=== PATIENT | male | born 1955 | race African-American/Black ===

== ENCOUNTER 2023-04-09 11:25 | Emergency (ER) | payer MEDICARE, MEDICAID, SELFPAY ==
[2023-04-09 11:31] VITALS: BP 134/85; PULSE 86; RESP 18; TEMP 36.6; O2SAT 97; BMI 23.0
--- NOTE | 2023-04-09 11:36 | ED_ITS ---
HPI - General Adult General Chief complaint: Extremity Problem Stated complaint: L Foot Pain No Injury Time Seen by Provider: 04/09/23 12:15 Source: patient Mode of arrival: ambulatory Limitations: no limitations History of Present Illness HPI narrative: 67-year-old male with history of longstanding anemia presents to the emergency department requesting basic labs, patient saw a legal contracts specialist and was asked to get basic labs and a blood glucose check ?to see if I am a diabetic ?, patient does not have a primary care provider. He is trying to get a bunionectomy done due to a bunion on his left foot. He reports it has become progressively more painful over time. Also reports numbness to bilateral toes for about 2-3 weeks status post shoveling snow he reports they got wet. [employer] aware of this. No new findings or changes with his toes since he saw podiatry. Just requesting labs. Denies blunt trauma fevers, chills, nausea, vomiting, abdominal pain, headache, vision changes, chest pain and shortness of breath. Related Data Allergies Allergy/AdvReac Type Severity Reaction Status Date / Time No Known Allergies Allergy Verified 04/09/23 11:30 [No Known Allergies*] Review of Systems 2 Review of Systems: Constitutional : No Weight loss, No Fever, No Chills, No Fatigue, No Malaise ENT/Mouth : No sore throat, No Rhinorrhea Eyes: No Eye Pain, No Swelling, No Redness Cardiovascular : No Chest Pain, No SOB, No Dyspnea on Exertion, No Orthopnea, No Edema, No Palpitations Respiratory : No Cough, No Sputum, No Wheezing Gastrointestinal : No Nausea, No Vomiting, No Diarrhea, No Constipation, No abdominal Pain, No Hematochezia, No Melena Genitourinary : No Dysuria, No Urinary Frequency, No Hematuria, Musculoskeletal : No joint pain, No Myalgias, No Joint Swelling, + pain to bunion Skin : No Skin Lesions, No rash Neuro : No Weakness, No Numbness, No Dizziness, No Headache Psych : No Anxiety/Panic, No Depression All other systems reviewed and are negative Yes all other systems are reviewed and are negative [facility] Past Medical History Attestation statement: The following information was validated with the patient. Source: old records reviewed and nursing notes reviewed Social History Social History Advance Directives: No Advance Directives Information Provided: No Physical Exam ED Vital Signs: Vital Signs - 24 hr 04/09/23 11:31 Temperature 98 F Pulse Rate 86 Respiratory Rate 18 Blood Pressure 134/85 Pulse Oximetry 97 Oxygen Delivery Method Room Air BMI result Body Mass Index 23.0 vss Appearance: Alert.? Oriented X3.? No acute distress.? Head: Normocephalic, atraumatic, no step-offs or deformities Eyes: Pupils equal, round and reactive to light.? ENT: Pharynx normal.? Neck: Normal inspection.? Neck supple.? CVS: Normal heart rate and rhythm.? Pulses normal.? Respiratory: No respiratory distress.? Breath sounds normal.? Abdomen: Soft and nontender.? Skin: Skin warm and dry.? Normal skin color.? Normal skin turgor.? Extremities: No lower extremity edema.? No calf ttp. 5/5 strength to bilateral upper and lower extremities + l bunion tenderness on palpation. NO errythema or warmth overlying Neuro: Oriented X 3.? No motor deficit.? No sensory deficit. CN 2-12 intact Course Course Course Narrative: RME: 67 yold male presents to the ED left big toe bunion that is painful and wants labs drawn so he can get clearnace so the Podatirst can perform the bunion removal. The legal contracts specialist would like to know if he is diabetic. labs ordered. Foot motor, neuro, and vascular exam intact. positive for bunion tenderness on palpation. Reevaluation(s) Reevaluation #1: CBC with a microcytic anemia noted 66.9 MCV, hemoglobin 9.7, hematocrit 33.5. No reports of active bleeding at this time. I do not have previous labs to compare with. No complaints such as fatigue, no tachycardia, hypotension or tachypnea leading me to believe that patient is having acute blood loss anemia and hypovolemic shock. This is likely patient's baseline, he is supposed to take iron pills he states but isnt taking them, has hx of anemia requiring transfusions in the pasat. He has been anemic in the past. Chemistry no acute findings requiring intervention. Random glucose of 86. Explained to patient he can share these values with his primary care provider however I will not provide surgical clearance from an emergency department as I do not have a full medical history on this patient previous labs to compare with. Time: 12:19 Reevaluation #2: Patient given copy of labs and list of PCPs in the area. Time: 12:34 Medical Decision Making Medical Decision Making MDM Narrative: 59-year-old male presents requesting labs so he can be seen by a legal contracts specialist. He wants a bunionectomy Physical exam with pain to palpation of bunion of left foot. No overlying skin changes. History and physical exam consistent with bunion. Unlikely septic joint, gout, pseudogout. Patient would like to know if he has a diabetic, provider in triage ordered labs. I explained to patient I will not medically clear him for procedure we can order the labs and it is up to his primary care provider to clear him for this procedure. I do not have previous labs to compare with. Labs ordered and pending Differential Diagnosis Differential Diagnoses: The differential diagnosis associated with the presentation includes History and physical exam consistent with bunion. Unlikely septic joint, gout, pseudogout. Admission/Observation Consideration of admission/observation: Escalation of care including admission/observation considered Unlikely Lab Data MDM Lab Attestation statement: I reviewed the patient's lab results. Microcytic anemia noted 04/09/23 11:46 04/09/23 11:46 Labs: Lab Results 04/09/23 Range/Units 11:46 WBC 5.9 (4.8-10.8) X10*3/uL RBC 5.01 (4.60-5.80) X10*6/uL Hgb 9.7 L (14.0-18.0) g/dl Hct 33.5 L (42.0-52.0) % MCV 66.9 L (80.0-98.0) fL MCH 19.4 L (27.0-33.0) pg MCHC 29.0 L (31.0-36.0) g/dl RDW 20.3 H (11.0-16.0) % Plt Count 308 (160-400) X10*3/uL MPV 9.6 (9.4-12.4) fL Immature Gran % (Auto) 0.5 H (0.0-0.4) % Neut % (Auto) 74.5 H (45-73) % Lymph % (Auto) 8.3 L (20-40) % [place] % (Auto) 12.6 H (2-11) % Eos % (Auto) 2.7 (0-4) % Baso % (Auto) 1.4 (0-2) % Lymph # (Auto) 0.5 L (1.2-4.9) X10*3/uL [place] # (Auto) 0.7 (0.1-1.2) X10*3/uL Eos # (Auto) 0.2 (0.0-0.4) X10*3/uL Baso # (Auto) 0.1 (0.0-0.2) X10*3/uL Abs Immat Gran (auto) 0.03 (0.00-0.03) X10*3/uL Absolute Neuts (auto) 4.4 (2.0-8.3) x10*3/uL Absolute Nucleated RBC 0.000 (0.0-0.012) X10*3/uL Nucleated RBC % (auto) 0.0 (0.0-0.2) /100WBC Sodium 136 (135-145) mmol/L Potassium 3.9 (3.3-5.1) mmol/L Chloride 106 (96-108) mmol/L Carbon Dioxide 21 L (22-29) mmol/L Anion Gap 13 (12-20) BUN 23 H (9-16) mg/dL Creatinine 1.13 (0.5-1.4) mg/dL Estim Creat Clear Calc 64.2 Estimated GFR > 60 Random Glucose 86 (60-115) mg/dL Estimat Average Glucose 105 mg/dL Hemoglobin A1c % 5.3 (<6.0) % Calcium 8.8 (8.4-10.2) mg/dL Total Bilirubin 0.2 (0.0-1.0) mg/dL AST 16 (5-37) U/L ALT 16 (0-40) U/L Alkaline Phosphatase 76 (39-117) U/L Total Protein 7.2 (6.5-8.0) g/dL Albumin 3.9 (3.5-5.0) g/dL Critical Care Time Critical Care Time Critical Care Time: No Discharge Plan Discharge Clinical Impression: Bunion Patient Disposition: Home, Self-Care Instructions: Bunion (ED), Bunionectomy (DC) Additional Instructions: Take your medications as prescribed. If you were prescribed antibiotics today, it is important that you take your medication to their entirety, do not skip any doses, do not finish them early. Follow-up with your primary care provider this week. Return to the emergency department with new or worsening symptoms. Such as fevers, chills, chest pain, shortness of breath, nausea, vomiting, dizziness, headache, vision changes, lethargy In case of emergency call 911 Referrals: ED Physician,Generic [Physician] - 2 days Stand Alone Forms: Work/School Release Interventions: ED Discharge Assessment Last Done: 04/09/23 12:40 Discharge Date/Time: 04/09/23 12:41
[2023-04-09 11:52] LABS: MANUAL DIFF FLAG NO
[2023-04-09 12:04] LABS: Basophils Absolute Auto 0.1 X10*3/uL (0.0-0.2); Basophils Percent Auto 1.4 % (0-2); Eosinophils Absolute Auto 0.2 X10*3/uL (0.0-0.4); Eosinophils Percent Auto 2.7 % (0-4); Hematocrit 33.5 % (42.0-52.0); Hemoglobin 9.7 g/dl (14.0-18.0); Imm Gran Abs Auto 0.03 X10*3/uL (0.00-0.03); Imm Gran Pct Auto 0.5 % (0.0-0.4); Lymphocytes Absolute Auto 0.5 X10*3/uL (1.2-4.9); Lymphocytes Percent Auto 8.3 % (20-40); Mean Corpuscular Hemoglobin 19.4 pg (27.0-33.0); Mean Corpuscular Volume 66.9 fL (80.0-98.0); Mean Platelet Volume 9.6 fL (9.4-12.4); Monocytes Absolute Auto 0.7 X10*3/uL (0.1-1.2); Monocytes Percent Auto 12.6 % (2-11); Neutrophils Absolute Auto 4.4 x10*3/uL (2.0-8.3); Neutrophils Percent Auto 74.5 % (45-73); Platelet Count 308 X10*3/uL (160-400); Red Blood Count 5.01 X10*6/uL (4.60-5.80); Red Cell Distribution Width 20.3 % (11.0-16.0); White Blood Count 5.9 X10*3/uL (4.8-10.8)
[2023-04-09 12:10] LABS: Alanine Aminotransferase 16 U/L (0-40); Albumin Level 3.9 g/dL (3.5-5.0); Alkaline Phosphatase 76 U/L (39-117); Anion Gap 13 (12-20); Aspartate Amino Transferase 16 U/L (5-37); Bilirubin Total 0.2 mg/dL (0.0-1.0); Blood Urea Nitrogen 23 mg/dL (9-16); Calcium 8.8 mg/dL (8.4-10.2); Carbon Dioxide 21 mmol/L (22-29); Chloride 106 mmol/L (96-108); Creatinine Clr Calc Pharmacy 64.2; Estimated Glomerular Filt Rate > 60; Glucose Random 86 mg/dL (60-115); Potassium 3.9 mmol/L (3.3-5.1); Sodium 136 mmol/L (135-145); Total Protein 7.2 g/dL (6.5-8.0)
[2023-04-09 13:18] LABS: Estimated Average Glucose 105 mg/dL; Hemoglobin A1C 86.6667 umol/L; Hemoglobin A1c % 5.3 % (<6.0)
== END 2023-04-09 12:41 | disposition home or self-care (01) ==
PROVIDERS: Physician Assistant; Emergency Provider Emergency Medicine Emergency Medical Services
DX: M21.612 Bunion of left foot (principal); Z13.1 Encounter for screening for diabetes mellitus; M79.672 Pain in left foot; R20.0 Anesthesia of skin; D50.9 Iron deficiency anemia, unspecified
CPT/HCPCS: 36415; 80053; 83036; 85025; 99282; 99283